=== PATIENT | male | born 1945 | race Caucasian/White ===

== ENCOUNTER 2024-05-08 10:30 | Inpatient (IN) | payer BC, MEDICAID ==
[2024-05-08] VITALS (27 sets, daily range): BP systolic 77–137; BP diastolic 36–94; PULSE 67–125; RESP 15–38; TEMP 96.6–98.5; O2SAT 92–100
[~2024-05-08] VITALS: Ht 182.9 cm; Wt 80.0 kg
--- NOTE | 2024-05-08 10:40 | ED.PDOC ---
History of Present Illness HPI Comments HPI: Poor Historian. 78-year-old male brought in by ambulance from home for generalized weakness. Patient typically ambulates with a walker however in the last few days he has not been able to get out of bed. This severe weakness was to the point that it was unable to make it to the bathroom and had soiled himself. Denies any acute pain anywhere in his body. Pre-hospital vital signs were stable with some tachycardia of 110. Blood sugar was normal. Per EMS he was slightly hypoxic in the high 80s at room air so they placed him on 2 L nasal cannula. However later in the course as the nurse was cleaning the patient we noted bright red blood per rectum. GI workup was initiated. Vitals: Temp:99.1 F Heart rate: 110 RR: 14 BP:103/67 02 sat: 100% on room air PMH: CHF, HLD,COPD, HTN, CHRONIC KIDNEY DISEASE, DNR PSH: UYNKNOWN Social history: denies tobacco use, denies ETOH use, denies drug use Meds: UNKNOWN Allergies: PENICILLIN, MINT REVIEW OF SYSTEMS: CONSTITUTIONAL: Denies acute: fever, diaphoresis, chills, HEAD: Denies acute: headache, photophobia Eyes: Denies acute: Double vision, vision loss, eye pain, eye discharge. EARS: Denies acute: tinnitus, hearing loss, ear discharge, ear pain, THROAT: Denies acute: sore throat, swelling, difficulty swallowing , pain with swallowing, change in voice. NECK: Denies acute: neck pain, neck swelling, stiff neck. HEART: Denies acute : chest pain, palpitations, LUNGS: Denies acute: SOB, wheezing, cough, hemoptysis ABDOMEN: Denies acute: abdominal pain, Nausea, Vomiting, diarrhea, melena , hematemesis, hematochezia SKIN: Denies acute: rash, redness, lesions, itchiness. EXTREMITIES: Denies acute: calf pain, numbness, tingling, weakness, denies pain in extremity. Denies acute: Low back pain. Neuro: Denies acute: focal neurological deficit, motor or sensory focal neurological deficit, tremors, seizure like activity, confusion, dizziness, change in mental status, loss of bowel or bladder function, cauda equina like symptoms. : Denies acute: dysuria, hematuria, flank pain, increase in urinary frequency. PSYCH: Denies acute: hallucination, suicidal ideation, homicidal ideation. PHYSICAL EXAM: General: no acute distress, awake and alert. Appears weak Head: normocephalic, atraumatic. Neck: supple, trachea is midline, no swelling. Throat: Normal phonation. Eyes:, no erythema, no purulent discharge, no proptosis, no icterus. Heart: regular tachycardia, no significant murmur appreciated. Lungs: no apparent respiratory distress, No wheezing, no rhonchi, no crackles. No stridors Clear to auscultation bilaterally. Abdomen: non tender to palpation, non distended, soft, no guarding, no rebound, + bowel sounds. Neuro: Awake, Alert, oriented to name, self, situation, follows commands Speech is normal. Skin: no petechia, no purpura, no cyanosis, non-pale, not jaundice. Lower extremities: --no - Pitting edema no deformity, no focal swelling, no calf TTP. Able to flex bilateral knees and hips. Makes eye contact. moves all four extremities. Face: no apparent facial droop. Chief Complaint: GENERALIZED WEAKNESS Time Seen by MD: 10:37 Reviewed Notes: Nurses Notes, Freezer Assistant Notes, Medications, Allergies Allergies: Uncoded Allergies: PENICILLIN (Allergy, Unknown, 05/08/24) Information Source: Patient, Emergency Med Personnel Mode of Arrival: EMS Past Medical History PAST MEDICAL HISTORY: CHF, CKF, COPD, High Lipids, HTN Surgical History: Unknown Family History Family History: Unknown Social History Smoker: Non-Smoker Alcohol: Denies ETOH Use Drugs: Denies Drug Use Lives In: Home Was a procedure done? Was a procedure done?: No Differential Dx Considerations may include: As far generalized weakness: Includes but not limited to thyroid disease, encephalopathy, electrolyte abnormality, sepsis, infection, intracranial pathology, drug adverse effects, arrhythmia, kidney insufficiency, ACS, CVA, malignancy, anemia As far as GI bleed: Diverticulitis, colitis, fistula, neoplasm, hemorrhoids, anal fissures, constipation, Crohn's disease, ulcerative colitis X-Ray, Labs, Meds, VS Vital Signs Date Time Temp Pulse Resp B/P (MAP) Pulse Ox O2 Delivery O2 Flow Rate FiO2 05/08/24 17:25 97.3 108 19 95/36 97.3 05/08/24 17:00 97.3 67 15 137/57 97.3 05/08/24 17:00 97.3 115 24 99/57 (71) 96 97.3 05/08/24 16:50 97.3 121 24 112/43 97.3 05/08/24 16:00 97.3 121 14 83/48 (60) 96 97.3 05/08/24 16:00 121 05/08/24 15:00 118 14 91/43 (59) 96 05/08/24 14:45 96.6 111 17 89/56 96.6 05/08/24 14:30 96.6 110 15 77/46 96.6 05/08/24 14:15 96.6 107 24 82/48 96.6 05/08/24 14:00 110 24 68/43 (51) 100 05/08/24 13:00 107 23 74/44 (54) 100 05/08/24 12:00 96.6 105 32 104/60 (75) 100 96.6 05/08/24 12:00 105 05/08/24 12:00 105 32 100 Nasal Cannula* 2 28 05/08/24 11:01 105 05/08/24 10:57 100 Nasal Cannula* 4 36 05/08/24 10:43 99.1 110 14 103/67 (79) 100 Lab Test 05/08/24 17:26 05/08/24 12:54 05/08/24 10:59 Range/Units Prothrombin Time 12.9 H 9.3-11.8 sec Prothrombin Time INR 1.24 H 0.9-1.15 Activated Partial Thromboplast Time 21.7 L 24.5-34.5 SEC Sodium Level 144 136-145 mmol/L Potassium Level 7.0 *H 3.5-5.1 mmol/L Chloride Level 118 H 98-107 mmol/L Carbon Dioxide Level 15 L 20-31 mmol/L Anion Gap 11 5-15 Blood Urea Nitrogen 62 H 9-23 mg/dL Creatinine 2.34 H 0.700-1.30 mg/dL Glomerular Filtration Rate Calc 28 >90 mL/min BUN/Creatinine Ratio 26.5 H 10.0-20.0 Serum Glucose 134 H 74-106 mg/dL Calcium Level 8.2 L 8.7-10.4 mg/dL Troponin I High Sensitivity 45 30 27 </=54 ng/L B-Type Natriuretic Peptide 163.45 132.85 0-100 pg/mL Hemoglobin 5.7 #*L 7.5 L 13.5-17.5 g/dL Hematocrit 18.2 #L 23.7 L 41.0-53.0 % Lactic Acid Level 3.4 *H 2.4 *H 0.4-2.0 mmol/L White Blood Count 13.5 H 4.4-10.8 10^3/uL Red Blood Count 2.33 L 4.5-5.90 10^6/uL Mean Corpuscular Volume 101.5 H 80.0-100.0 fL Mean Corpuscular Hemoglobin 32.1 H 28.0-32.0 pg Mean Corpuscular Hemoglobin Concent 31.6 L 32.0-36.0 g/dL Red Cell Distribution Width 15.6 H 11.8-14.3 % Platelet Count 158 140-450 10^3/uL Mean Platelet Volume 9.0 6.9-10.8 fL Neutrophils (%) (Auto) 89.6 H 37.0-80.0 % Lymphocytes (%) (Auto) 4.4 L 10.0-50.0 % Monocytes (%) (Auto) 5.2 0.0-12.0 % Eosinophils (%) (Auto) 0.2 0.0-7.0 % Basophils (%) (Auto) 0.6 0.0-2.0 % Neutrophils # (Auto) 12.1 H 1.6-8.6 10 ^3/uL Lymphocytes # (Auto) 0.6 0.4-5.4 10 ^3/uL Monocytes # (Auto) 0.7 0-1.3 10 ^3/uL Eosinophils # (Auto) 0 0-0.8 10 ^3/uL Basophils # (Auto) 0.1 0-0.2 10 ^3/uL Nucleated Red Blood Cells 0.0 % Magnesium Level 2.3 1.6-2.6 mg/dL Current Medications Medications (Trade) Dose Ordered Sig/Maurisio Route Start Time Stop Time Status Last Admin Sodium Chloride 1,000 ml @ 1,000 mls/hr Q1H ONCE IV 05/08/24 11:45 05/08/24 12:44 DC 05/08/24 11:45 Octreotide Acetate 100 mcg/ Sodium Chloride 51 ml @ 204 mls/hr ONCE ONCE IV 05/08/24 11:45 05/08/24 11:59 DC 05/08/24 13:08 Octreotide Acetate 500 mcg/ Sodium Chloride 100 ml @ 10 mls/hr Q10H IV 05/08/24 11:45 05/08/24 16:50 Pantoprazole Sodium (Protonix) 40 mg ONCE ONCE IV 05/08/24 11:45 05/08/24 11:48 DC 05/08/24 12:12 Pantoprazole Sodium 50 ml @ 10 mls/hr Q5H ONCE IV 05/08/24 11:45 05/08/24 16:44 DC 05/08/24 12:15 Sodium Chloride (Saline Lock Ns) 10 ml Q8HR IV 05/08/24 14:00 05/08/24 14:37 Metronidazole 100 ml @ 100 mls/hr ONCE ONCE IV 05/08/24 14:15 05/08/24 15:14 DC 05/08/24 16:17 [place] [address] Ph: [phone] DIAGNOSTIC IMAGING Diagnostic Imaging Report : [id number] Signed PATIENT: LEE FERGUSON ACCT: [id number] UNIT: [id number] : 1945 LOC: ER ROOM / BED: / AGE / SEX: 78 / M ADM STATUS: REG ER SERVICE 1040 ORDERING PHYSICIAN: TOBI SCHMITZ DO PROCEDURE(s): CXRP - CHEST PORTABLE REASON: gen weak ORDER NUMBER(s): [id number], ACCESSION NUMBER(s): [id number] CHEST RADIOGRAPH Indication:gen weak Technique: Single frontal view of the chest was obtained COMPARISON: None FINDINGS: Lines and Tubes: None Lungs: Clear Pleura: No effusion. No pneumothorax. Cardiomediastinal contours: Unremarkable Bones: Unremarkable IMPRESSION: No acute disease. ATED BY: JUANCHO COUGHLIN MD DICTATED DATE/TIME: 05/08/241124 SIGNED BY: JUANCHO COUGHLIN MD SIGNED DATE/TIME: 05/08/241124 CC: [place] [address] Ph: [phone] DIAGNOSTIC IMAGING Diagnostic Imaging Report : [id number] Signed PATIENT: LEE FERGUSON ACCT: [id number] UNIT: [id number] : 1945 LOC: ER ROOM / BED: / AGE / SEX: 78 / M ADM STATUS: REG ER SERVICE 1040 ORDERING PHYSICIAN: TOBI SCHMITZ DO PROCEDURE(s): ABPL - CT AB PEL WO CON-NO ORAL OR IV REASON: gen weak ORDER NUMBER(s): [id number], ACCESSION NUMBER(s): [id number] Exam: CT CT AB PEL WO CON-NO ORAL OR IV History: gen her Comparison Study: None Technique: Multidetector spiral CT of the abdomen and pelvis was performed from lung bases to pubic symphysis. Imaging was performed without IV contrast. Axial, coronal and sagittal multiplanar reformats were obtained from the axial data set by the technologist. Radiation dose : Abdomen/Pelvis: CTDIvol 5 mGy, DLP 274.92 mGy*cm. Findings: Evaluation of solid organs is limited due to lack of intravenous contrast use. Lung Bases: No acute or significant lung base finding. Normal heart size. No pleural or pericardial effusion. Liver: The liver is normal in size. No focal lesions. Gallbladder and biliary Tree: Unremarkable Spleen: Unremarkable Pancreas: The pancreas is grossly normal in appearance. Adrenal Glands: Unremarkable Kidneys: Bilateral renal cysts. No hydronephrosis or nephrolithiasis. Bladder: Grossly unremarkable for degree of distention. Bowel: The stomach is grossly normal in appearance. Small bowel and colon are normal in caliber and distribution. The appendix is not visualized; however, no secondary findings of acute appendicitis identified. Ascites: Absent Lymphadenopathy: No mesenteric, retroperitoneal or periportal lymphadenopathy. Abdominal wall and Mesentery: Unremarkable. Vasculature: Descending thoracic aortic aneurysm measuring up to 45 mm. Infrarenal abdominal aortic aneurysm measuring up to 67 mm. Pelvic Organs: Unremarkable Musculoskeletal: Multiple compression fractures including T12, L1, L4, and L5. IMPRESSION: 1. 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 Recommend further evaluation with CTA of the chest abdomen and pelvis. 2. Bilateral renal cysts. No definite acute intra-abdominal process identified. Multiple compressions fractures in the spine. Consider further evaluation with MRI of the lumbar spine. Radiation optimization: All CT scans at this facility use at least one of these dose optimization techniques: Automated exposure control mA and/or kV adjustment per patient size (includes targeted exams where dose is matched to clinical indication) or iterative reconstruction. HS:Y ATED BY: LALO KIM MD DICTATED DATE/TIME: 05/08/241133 SIGNED BY: LALO KIM MD SIGNED DATE/TIME: 05/08/241133 CC: Time of 1ST Reevaluation: 20:54 Reevaluation 1ST: Improved Patient Education/Counseling: Diagnosis, Treatment Family Education/Counseling: No Family Present Comments Patient presented with the above HPI.---generalized weakness---workup was initiated. patient was found with the above mentioned diagnosis. Patient was given: Fluid boluses, octreotide bolus and a drip, Protonix bolus and a drip, patient was typed and screened and transfused 2 units of packed red blood cells. I also started empiric antibiotics. Patient ED course and VS have been stabilized. Patient has been reassessed in the ED and remained in a stable condition. Pertinent incidental findings were discussed with the patient and/or family. Patient/family voices understanding and is agreeable with plan. Patient has been observed in the ED adequate length of time to insure i mprovement/stability. patient was admitted to the medicine team for further evaluation and treatment of their presentation. All the reports of any imaging studies that were ordered by myself were reviewed by myself. GI team came and evaluated the patient at bedside here in the ED. Later in the course patient was found with hyperkalemia. I was never made aware of this. The hospitalist admitting team started hyperkalemia protocol on the patient. Departure 1 Departure Time of Disposition: 11:57 Impression: Primary Impression: GI bleed Additional Impressions: Hemorrhagic shock Hyperkalemia Abdominal aneurysm Thoracic aortic aneurysm UTI (urinary tract infection) Disposition: ADMITTED INPATIENT Admit to: ICU Condition: Critical Discharged With: Self Heart Score Heart Score: Heart Score Response (Comments) Value History Moderate Suspicious 1 EKG Normal 0 Age >65 2 Risk Factors 1 or 2 risk factors 1 Troponin Normal limit 0 Total 4 Critical Care Note Critical Care Time?: Yes (1 hr-critical care time only) I personally scribed for TOBI SCHMITZ DO ([email or web address]) on 05/08/24 at 10:40. Electronically submitted by Roscoe London (PAMELA). I personally scribed for TOBI SCHMITZ DO ([email or web address]) on 05/08/24 at 10:58. Electronically submitted by Roscoe London (PAMELA). I personally scribed for TOBI SCHMITZ DO ([email or web address]) on 05/08/24 at 11:00. Electronically submitted by Roscoe London (PAMELA). I personally scribed for TOBI SCHMITZ DO ([email or web address]) on 05/08/24 at 14:09. Electronically submitted by Roscoe London ([facility]). TOBI SCHMITZ DO May 08, 2024 10:40
[2024-05-08 11:18] LABS: Basophils # (auto) 0.1 10 ^3/uL (0-0.2); Basophils % (auto) 0.6 % (0.0-2.0); Eosinophils # (auto) 0 10 ^3/uL (0-0.8); Eosinophils % (auto) 0.2 % (0.0-7.0); Hematocrit 23.7 % (41.0-53.0); Hemoglobin 7.5 g/dL (13.5-17.5); Lymphocytes # (auto) 0.6 10 ^3/uL (0.4-5.4); Lymphocytes % (auto) 4.4 % (10.0-50.0); Mean Corpuscular Hemoglobin 32.1 pg (28.0-32.0); Mean Corpuscular Hgb Conc. 31.6 g/dL (32.0-36.0); Mean Corpuscular Volume 101.5 fL (80.0-100.0); Monocytes # (auto) 0.7 10 ^3/uL (0-1.3); Monocytes % (auto) 5.2 % (0.0-12.0); Neutrophils # (auto) 12.1 10 ^3/uL (1.6-8.6); Neutrophils % (auto) 89.6 % (37.0-80.0); Platelet Count (auto) 158 10^3/uL (140-450); Red Blood Cells 2.33 10^6/uL (4.5-5.90); Red Cell Distribution Width 15.6 % (11.8-14.3); White Blood Cell 13.5 10^3/uL (4.4-10.8)
--- NOTE | 2024-05-08 11:27 | DVH ---
CHEST RADIOGRAPH Indication:gen weak Technique: Single frontal view of the chest was obtained COMPARISON: None FINDINGS: Lines and Tubes: None Lungs: Clear Pleura: No effusion. No pneumothorax. Cardiomediastinal contours: Unremarkable Bones: Unremarkable IMPRESSION: No acute disease.
--- NOTE | 2024-05-08 11:37 | DVH ---
Exam: CT CT AB PEL WO CON-NO ORAL OR IV History: gen weak Comparison Study: None Technique: Multidetector spiral CT of the abdomen and pelvis was performed from lung bases to pubic symphysis. Imaging was performed without IV contrast. Axial, coronal and sagittal multiplanar reform ats were obtained from the axial data set by the technologist. Radiation dose : Abdomen/Pelvis: CTDIvol 5 mGy, DLP 274.92 mGy*cm. Findings: Evaluation of solid organs is limited due to lack of intravenous contrast use. Lung Bases: No acute or significant lung base finding. Normal heart size. No pleural or pericardial effusion. Liver: The liver is normal in size. No focal lesions. Gallbladder and biliary Tree: Unremarkable Spleen: Unremarkable Pancreas: The pancreas is grossly normal in appearance. Adrenal Glands: Unremarkable Kidneys: Bilateral renal cysts. No hydronephrosis or nephrolithiasis. Bladder: Grossly unremarkable for degree of distention. Bowel: The stomach is grossly normal in appearance. Small bowel and colon are normal in caliber and d istribution. The appendix is not visualized; however, no secondary findings of acute appendicitis id entified. Ascites: Absent Lymphadenopathy: No mesenteric, retroperitoneal or periportal lymphadenopathy. Abdominal wall and Mesentery: Unremarkable. Vasculature: Descending thoracic aortic aneurysm measuring up to 45 mm. Infrarenal abdominal aortic a neurysm measuring up to 67 mm. Pelvic Organs: Unremarkable Musculoskeletal: Multiple compression fractures including T12, L1, L4, and L5. IMPRESSION: 1. 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 Recommend fu rther evaluation with CTA of the chest abdomen and pelvis. 2. Bilateral renal cysts. No definite acute intra-abdominal process identified. Multiple compressions fractures in the spine. Consider further evaluation with MRI of the lumbar spine. Radiation optimization: All CT scans at this facility use at least one of these dose optimization tequila hniques: Automated exposure control mA and/or kV adjustment per patient size (includes targeted exams where dose is matched to clinical indication) or iterative reconstruction. HS:Y
[2024-05-08] MEDS: SODIUM CHLORIDE 0.9% 1,000 ML IV ONE (11:45)
[2024-05-08 11:53] LABS: Lactic Acid w/Reflex 2.4 mmol/L (0.4-2.0)
[2024-05-08] MEDS: PANTOPRAZOLE 40 MG/10 ML VIAL INJ IV ONE (12:12)
[2024-05-08] MEDS: PANTOPRAZOLE 40mg/50ML NS AE 50 ML IV ONE (12:15)
--- NOTE | 2024-05-08 13:00 | ECG ---
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
[2024-05-08] MEDS: OCTREOTIDE ACETATE 100 MCG in SODIUM CHL 0.9% 50 ML IV ONE (13:08)
[2024-05-08 13:25] LABS: Hematocrit 18.2 % (41.0-53.0)
[2024-05-08 13:41] LABS: Hemoglobin 5.7 g/dL (13.5-17.5)
[2024-05-08] MEDS ORDERED: ACETAMINOPHEN 325 MG TAB PO PRN (14:00)
[2024-05-08] MEDS ORDERED: DOCUSATE SOD 100 MG CAP PO PRN (14:00)
[2024-05-08] MEDS ORDERED: HYDROcodone-ACET 5/325MG TAB PO PRN (14:00)
[2024-05-08] MEDS ORDERED: ONDANSETRON HCL 4 MG/2 ML VIAL IV PRN ×2 (14:00→17:45)
[2024-05-08] MEDS: SODIUM CHLOR 0.9% PF (SALINE LOCK) 10ML VIAL/SYR IV SCH (14:37)
[2024-05-08] MEDS: metroNIDAZOLE 500MG/100ML 100 ML IV ONE (16:17)
[2024-05-08] MEDS: OCTREOTIDE ACETATE 500 MCG in SODIUM CHL 0.9% 99 ML IV SCH (16:50)
[2024-05-08] MEDS ORDERED: MORPHINE SULFATE INJ 2 MG/ml SYRG IV PRN (17:45)
[2024-05-08] MEDS ORDERED: PANTOPRAZOLE 40mg/50ML NS AE 50 ML IV ONE (17:45)
[2024-05-08] MEDS ORDERED: NITROGLYCERIN 0.4 MG SL TAB SL PRN (17:45)
[2024-05-08 18:18] LABS: Chloride 118 mmol/L (98-107); Sodium 144 mmol/L (136-145)
[2024-05-08 18:19] LABS: Anion Gap 11 (5-15); Carbon Dioxide 15 mmol/L (20-31)
[2024-05-08 18:20] LABS: Calcium 8.2 mg/dL (8.7-10.4)
[2024-05-08 18:24] LABS: BUN/Creatinine Ratio 26.5 (10.0-20.0); Blood Urea Nitrogen 62 mg/dL (9-23); Glucose 134 mg/dL (74-106)
[2024-05-08 18:31] LABS: INR 1.24 (0.9-1.15); Partial Thromboplastin Time 21.7 SEC (24.5-34.5); Prothrombin Time 12.9 sec (9.3-11.8)
[2024-05-08] MEDS: SODIUM CHLORIDE 0.9% 1,000 ML IV SCH (18:32)
[2024-05-08] MEDS: PANTOPRAZOLE 40mg/50ML NS AE 50 ML IV SCH (18:33)
--- NOTE | 2024-05-08 18:40 | DVHHP2 ---
History of Present Illness Reason for Visit: Generalized weakness History of Present Illness To be noted patient was very poor historian most surgical history obtained from the ER physician and documentation from the ER chart. 78-year-old male with a known medical history initially presented to the hospital by paramedics with generalized weakness and difficulty getting out of bed. In the ER patient was found to have bright red blood per rectum has been as dark stools in the ER we are patient currently getting 2nd unit of packed RBC. Patient was being admitted to ICU as he is critical. Protonix drip will be started. GI: GI bleed Heme/Onc: Anemia NOS Smoke: No ALCOHOL: none Review of Systems Review of Systems Twelve review of system can not be obtained as patient was currently poor historian. Allergies: Uncoded Allergies: PENICILLIN (Allergy, Unknown, 05/08/24) Medications Current Medications Medications Dose Ordered Sig/Maurisio Route Start Time Stop Time Status Last Admin Dose Admin Octreotide Acetate 500 mcg/ Sodium Chloride 100 ml @ 10 mls/hr Q10H IV 05/08/24 11:45 05/08/24 16:50 10 MLS/HR Sodium Chloride 10 ml Q8HR IV 05/08/24 14:00 05/08/24 14:37 10 ML Acetaminophen/ Hydrocodone Bitart 1 tab Q4HP PRN PO 05/08/24 14:00 Docusate Sodium 100 mg BIDPRN PRN PO 05/08/24 14:00 Acetaminophen 650 mg Q6HP PRN PO 05/08/24 14:00 Sodium Chloride 1,000 ml @ 120 mls/hr Q8H20M IV 05/08/24 17:45 05/08/24 18:32 120 MLS/HR Ondansetron HCl 4 mg Q4HP PRN IV 05/08/24 17:45 Nitroglycerin 0.4 mg Q5MINP PRN SL 05/08/24 17:45 Morphine Sulfate 2 mg Q30M PRN IV 05/08/24 17:45 Pantoprazole Sodium 50 ml @ 10 mls/hr Q5H IV 05/08/24 18:00 05/08/24 18:33 10 MLS/HR Exam Vital Signs Vital Signs Date Time Temp Pulse Resp B/P (MAP) Pulse Ox O2 Delivery O2 Flow Rate FiO2 05/08/24 18:00 98.1 110 22 86/59 (68) 99 98.1 05/08/24 12:00 Nasal Cannula* 2 28 Exam HEENT pupils are reactive positive pallor conjunctiva Neck is supple CV is S1-S2 regular with a positive tachycardic between 100-100 and has been bilateral clear GI posterior bowel sounds soft nondistended no guarding no rigidity Extremity no edema 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 Labs/Xrays Labs Test 05/08/24 18:31 05/08/24 17:26 05/08/24 12:54 05/08/24 10:59 Range/Units Prothrombin Time 12.9 H 9.3-11.8 sec Prothrombin Time INR 1.24 H 0.9-1.15 Activated Partial Thromboplast Time 21.7 L 24.5-34.5 SEC Troponin I High Sensitivity 45 </=54 ng/L B-Type Natriuretic Peptide 163.45 0-100 pg/mL Hemoglobin 5.7 #*L 13.5-17.5 g/dL Hematocrit 18.2 #L 41.0-53.0 % Lactic Acid Level 3.4 *H 0.4-2.0 mmol/L White Blood Count 13.5 H 4.4-10.8 10^3/uL Red Blood Count 2.33 L 4.5-5.90 10^6/uL Mean Corpuscular Volume 101.5 H 80.0-100.0 fL Mean Corpuscular Hemoglobin 32.1 H 28.0-32.0 pg Mean Corpuscular Hemoglobin Concent 31.6 L 32.0-36.0 g/dL Red Cell Distribution Width 15.6 H 11.8-14.3 % Platelet Count 158 140-450 10^3/uL Mean Platelet Volume 9.0 6.9-10.8 fL Neutrophils (%) (Auto) 89.6 H 37.0-80.0 % Lymphocytes (%) (Auto) 4.4 L 10.0-50.0 % Monocytes (%) (Auto) 5.2 0.0-12.0 % Eosinophils (%) (Auto) 0.2 0.0-7.0 % Basophils (%) (Auto) 0.6 0.0-2.0 % Neutrophils # (Auto) 12.1 H 1.6-8.6 10 ^3/uL Lymphocytes # (Auto) 0.6 0.4-5.4 10 ^3/uL Monocytes # (Auto) 0.7 0-1.3 10 ^3/uL Eosinophils # (Auto) 0 0-0.8 10 ^3/uL Basophils # (Auto) 0.1 0-0.2 10 ^3/uL Nucleated Red Blood Cells 0.0 % Magnesium Level 2.3 1.6-2.6 mg/dL Assessment/Plan Assessment/Plan 78-year-old male who initially went to the heart with generalized weakness found to have 1. Acute symptomatic anemia with lower GI bleed 2. GI bleed 3. Lactic acidosis -stat CMP as patient does not have any labs, repeat lactic acid, transfused 2 units of packed RBC, hemoglobin hematocrit q.6 hours transfuse if less than eight. GI has been notified, check PT PTT INR. -no family available at this point of time. Plan discussed with: Patient My Orders Orders - OBED ECHOLS MD Procedure Category Date Status Time Sodium Chloride 0.9% PHA 05/08/24 In Process 17:45 Ondansetron Hcl PHA 05/08/24 In Process (Zofran) 17:45 Nitroglycerin PHA 05/08/24 In Process Sublingual (Ntrostat 17:45 Morphine Sulfate PHA 05/08/24 In Process Injection 17:45 Stat Ekg For Chest [facility] 05/08/24 In Process Pain 17:39 Notify Md Of Changes [facility] 05/08/24 In Process From Base 17:39 Revenue Integrity Analyst For [facility] 05/08/24 In Process 24 Hours 17:39 Emergency Dysrhythmia [facility] 05/08/24 In Process Protocol 17:39 Rhythm Strips Once [facility] 05/08/24 In Process Every Shift 17:39 Oxygen By Nasal RT 05/08/24 Transmitted Cannula 17:39 *[facility] CONS 05/08/24 Transmitted 17:39 Pantoprazole PHA 05/08/24 In Process 40mg/50ml Ns Ae 18:00 Admit ADMIT 05/08/24 Transmitted 18:14 Problem List: (1) GI bleed Date of Service: May 08, 2024 Billing Provider: OBED ECHOLS MD Common Visit Codes: NOT BILLABLE OBED ECHOLS MD May 08, 2024 18:40
[2024-05-08] MEDS: FUROSEMIDE 20 MG/2 ML VIAL IV ONE (19:26)
[2024-05-08] MEDS: DEXTROSE (50%) 50ML SYRG IV ONE ×2 (19:36→22:08)
[2024-05-08] MEDS: CALCIUM GLUC 1,000mg/50ml-NS 50 ML IV ONE (19:36)
[2024-05-08] MEDS: InsuLIN REG 1unit/0.01ml Soln (100units/ml) IV ONE ×2 (19:37→22:10)
[2024-05-08 19:42] LABS: Urine Amorphous Crystal FEW /hpf (None Seen); Urine Bacteria FEW /hpf (None Seen); Urine Blood Negative /uL (Negative); Urine Clarity Turbid (Clear); Urine Color Yellow (Yellow); Urine Hyaline Cast FEW /lpf (0 - 2); Urine Mucus FEW (None Seen); Urine Protein, UAD 2+ (Negative); Urine Specific Gravity 1.023 (1.001-1.035); Urine Urobilinogen 3 mg/dL (Negative); Urine WBC 4 /hpf (0 - 3)
[2024-05-08] MEDS: NOREPINEPHRINE 8 MG/250ML KIT 250 ML IV SCH (20:00)
[2024-05-08] MEDS ORDERED: SODIUM BICARB 50mEq/50ml Vial 150 ML in D5W 5% 1,000 ML IV SCH (20:00)
[2024-05-08] MEDS: SODIUM ZIRCONIUM CYCL 10 GM PAK PO SCH (20:45)
[2024-05-08] MEDS ORDERED: FUROSEMIDE 20 MG/2 ML VIAL IV ONE (21:15)
[2024-05-08] MEDS: FUROSEMIDE 100 MG/10ML VIAL IV ONE (21:18)
[2024-05-08] MEDS: ALBUMIN 25% 100 ML IV ONE (21:26)
[2024-05-08 21:36] LABS: Chloride 119 mmol/L (98-107); Sodium 146 mmol/L (136-145)
[2024-05-08 21:37] LABS: Anion Gap 10 (5-15); Calcium 8.5 mg/dL (8.7-10.4); Carbon Dioxide 17 mmol/L (20-31)
[2024-05-08] MEDS: SODIUM BICARB 8.4% 50Meq/50ml SYR Vial IV ONE ×2 (21:41→22:28)
[2024-05-08 21:42] LABS: BUN/Creatinine Ratio 22.8 (10.0-20.0); Blood Urea Nitrogen 54 mg/dL (9-23); Glucose 162 mg/dL (74-106)
[2024-05-08 21:43] LABS: Potassium 6.2 mmol/L (3.5-5.1)
[2024-05-08 21:53] LABS: Lactic Acid w/Reflex 4.1 mmol/L (0.4-2.0)
[2024-05-09] VITALS (20 sets, daily range): BP systolic 55–98; BP diastolic 32–52; PULSE 86–116; RESP 17–30; TEMP 96.1–98.6; O2SAT 92–100
[2024-05-09] MEDS: ALBUMIN 25% 100 ML IV ONE ×2 (00:24→00:58)
[2024-05-09 00:41] LABS: Hematocrit 23.6 % (41.0-53.0); Hemoglobin 7.3 g/dL (13.5-17.5)
--- NOTE | 2024-05-09 02:45 | DVHINCON2 ---
DATE OF CONSULTATION: 05/08/2024 GASTROENTEROLOGY CONSULTATION REFERRING PHYSICIAN: James Garza MD REASON FOR CONSULTATION: GI bleed. HISTORY OF PRESENT ILLNESS: The patient is a 78-year-old male with a past medical history significant for hypertension and hernia, who is brought to [facility] for evaluation of ambulatory dysfunction. The patient states that he was in his normal state of health up until 1:00 this morning when he had some difficulty with movement. The patient's nephew apparently contacted paramedics and he was brought to the hospital due to his generalized weakness and ambulatory dysfunction. Following his ER evaluation, the patient was noted to have an initial admission hemoglobin of 7.5, hematocrit 23.7, MCV 101.5, and a platelet count of 158,000. However, this patient has had several episodes of bright red blood per rectum in the ER. His INR is 1.24 with a protime of 12.9. 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 The patient also noted to have bilateral renal cysts, but no definite acute intra-abdominal process identified. The patient denies any GI related blood loss prior to his hospital admission. He denies using any anticoagulation or blood thinning therapy aside from aspirin 81 mg. The patient's vitals have been somewhat hypotensive with an admission blood pressure of 103/67; over the course of this admission, he has decreased systolic blood pressures dropped to 83/48. The patient denies any prior incidence of GI related blood loss. He denies having had a prior endoscopy, but states he had a colonoscopy over 50 years ago. No personal or family history of colorectal malignancies. Gastroenterology service has been asked for input regarding his symptoms. DRUG ALLERGIES: PENICILLIN. HOME MEDICATIONS: At the time of admission, he is on 81 mg of aspirin and ____. PAST MEDICAL HISTORY: Hypertension and hernia. PAST SURGICAL HISTORY: Cataracts. SOCIAL HISTORY: The patient denies drugs or alcohol. He does admit to smoking heavily in the past. FAMILY HISTORY: Noncontributory. REVIEW OF SYSTEMS: A 12-point review of systems limited, but as stated in HPI. PHYSICAL EXAMINATION: VITAL SIGNS: Temperature is 98.1, heart rate 110, respirations 22, blood pressure 86/59, O2 saturation 99%. GENERAL: This is a 78-year-old male. He is in no acute distress. He is awake, alert, oriented x3. He is very hard of hearing. HEENT: Unremarkable. He is very disheveled. He has very poor dentition. Mucous membranes are dry. NECK: Supple. CARDIOVASCULAR: Regular rhythm. He is tachycardic. RESPIRATORY: He is tachypneic. There is no murmurs, rubs or gallops. No wheezes, rales or rhonchi. GASTROINTESTINAL: Soft, nontender, nondistended. RECTAL: Deferred. LABORATORY DATA: White blood cell count 13.5, hemoglobin 5.7, hematocrit 18.2, platelet count is 158,000. Basic metabolic panel was relevant for serum sodium 144, potassium 7.0, chloride is 118, BUN is 62, creatinine is 2.34. Lactic acid 3.4. INR is 1.24. Protime is 12.9. ASSESSMENT: * GI bleed. Differential diagnosis given hemodynamic instability is upper GI blood loss from peptic ulcer disease, esophagitis, gastritis, Dieulafoy lesion or an aortoenteric fistula given his dilation of the thoracic aneurysm and infrarenal aneurysm. * Acute GI blood loss related anemia. * Hypertension. * Lactic acidosis. * Hyperkalemia. * Acute renal failure. RECOMMENDATIONS: * Aggressive volume resuscitation with packed red blood cells normal saline. * Obtain CT angiogram. * Correct electrolytes. * Nephrology evaluation. * Plan for diagnostic endoscopy once aortoenteric fistula has been excluded and the patient's electrolytes have been corrected. * Agree with ICU admission, the patient should be kept on Sandostatin and PPI drip. * Further recommendations based on hospital course. DO ARRON Ross/GISEL/MATTY TID: [id number] RECEIPT: [id number]
[2024-05-09] MEDS ORDERED: ALBUMIN 25% 50 ML IV SCH (07:15)
--- NOTE | 2024-05-09 07:18 | DVHINCON2 ---
Date of service: May 09, 2024 Reason for Consultation ASHLEY History of Present Illness 78 year old was admitted for weakness. He was unable to provide hx however he was noted to have severe anemia and hypotension. He was noted to have severe hyperkalemia. Medical managment ordered. He is s/p multiple PRBC. He was s/p IVF . I recommended pressors for hemodynamic support overnight Allergies: Uncoded Allergies: PENICILLIN (Allergy, Unknown, 05/08/24) Current Medications Current Medications Medications (Trade) Dose Ordered Sig/Maurisio Route PRN Reason Start Time Stop Time Status Last Admin Octreotide Acetate 500 mcg/ Sodium Chloride 100 ml @ 10 mls/hr Q10H IV 05/08/24 11:45 05/09/24 01:44 Pantoprazole Sodium (Protonix) 40 mg DAILY IV 05/09/24 10:00 05/08/24 17:58 DC Sodium Chloride (Saline Lock Ns) 10 ml Q8HR IV 05/08/24 14:00 05/09/24 05:34 Acetaminophen/ Hydrocodone Bitart (Hayes 5/325MG Tab) 1 tab Q4HP PRN PO MODERATE PAIN (4-6 PAIN SCALE) 05/08/24 14:00 Ondansetron HCl (Zofran) 4 mg Q4HP PRN IV NAUSEA / VOMITING 05/08/24 14:00 05/08/24 17:58 DC Docusate Sodium (Colace Capsule) 100 mg BIDPRN PRN PO FOR CONSTIPATION 05/08/24 14:00 Acetaminophen (Tylenol Tablet) 650 mg Q6HP PRN PO PAIN SCALE 1-3 OR TEMP>100.4 05/08/24 14:00 Sodium Chloride 1,000 ml @ 120 mls/hr Q8H20M IV 05/08/24 17:45 05/08/24 18:32 Ondansetron HCl (Zofran) 4 mg Q4HP PRN IV NAUSEA / VOMITING 05/08/24 17:45 Nitroglycerin (Ntrostat Sublingual) 0.4 mg Q5MINP PRN SL FOR CHEST PAIN 05/08/24 17:45 Morphine Sulfate 2 mg Q30M PRN IV FOR CHEST PAIN 05/08/24 17:45 Pantoprazole Sodium 50 ml @ 10 mls/hr Q5H IV 05/08/24 18:00 05/09/24 04:09 Sodium Bicarbonate 150 ml/Dextrose 1,150 ml @ 100 mls/hr [id number] IV 05/08/24 20:00 05/08/24 21:07 DC Zirconium Oxide (Lokelma) 10 gm TID PO 05/08/24 20:00 05/11/24 19:59 05/08/24 20:45 Norepinephrine Bitartrate 250 ml @ 3.75 mls/hr Q24H IV 05/08/24 20:00 05/08/24 22:46 DC Norepinephrine Bitartrate 250 ml @ 3.75 mls/hr Q24H IV 05/09/24 07:15 05/09/24 07:48 Albumin Human 50 ml @ 100 mls/hr Q8H IV 05/09/24 07:15 05/09/24 23:44 Review of Systems cannot obtain due to critical illness H&P Exam Vital Signs/I&O Vital Sign Date Time Temp Pulse Resp B/P (MAP) Pulse Ox O2 Delivery O2 Flow Rate FiO2 05/09/24 08:05 59/32 05/09/24 07:40 97.3 113 30 96 97.3 05/09/24 07:40 Nasal Cannula* 3 32 Intake and Output 05/08/24 05/09/24 19:00 07:00 Intake Total 1841 ml 1460 ml Output Total 0 ml 15 ml Balance 1841 ml 1445 ml Intake Oral 0 ml IV Total 1241 ml 910 ml Blood Product 600 ml 300 ml Other 250 ml Output Urine Total 0 ml 15 ml # Bowel Movements 3 Physical Exam lethargic , elderly male not intubated tachycardia course breaths Labs/Diagnostic Data Labs/Diagnostic Data Laboratory Tests Test 05/09/24 00:20 05/08/24 21:11 05/08/24 19:04 05/08/24 18:31 Range/Units Hemoglobin 7.3 #L 13.5-17.5 g/dL Hematocrit 23.6 #L 41.0-53.0 % Potassium Level 5.1 6.2 *H 3.5-5.1 mmol/L Sodium Level 146 H 136-145 mmol/L Chloride Level 119 H 98-107 mmol/L Carbon Dioxide Level 17 L 20-31 mmol/L Anion Gap 10 5-15 Blood Urea Nitrogen 54 H 9-23 mg/dL Creatinine 2.37 H 0.700-1.30 mg/dL Glomerular Filtration Rate Calc 27 >90 mL/min BUN/Creatinine Ratio 22.8 H 10.0-20.0 Serum Glucose 162 H 74-106 mg/dL Lactic Acid Level 4.1 *H 0.4-2.0 mmol/L Calcium Level 8.5 L 8.7-10.4 mg/dL Urine Color Yellow Yellow Urine Clarity Turbid H Clear Urine pH 5.0 5.0-9.0 Urine Specific [place] 1.023 1.001-1.035 Urine Protein 2+ H Negative Urine Ketones Trace Negative Urine Blood Negative Negative /uL Urine Nitrite Negative Negative Urine Bilirubin Negative Negative Urine Urobilinogen 3 H Negative mg/dL Urine Leukocyte Esterase Negative Negative /uL Urine RBC 2 0 - 3 /hpf Urine WBC 4 0 - 3 /hpf Urine Squamous Epithelial Cells Few <5 /hpf Urine Amorphous Crystals Few None Seen /hpf Urine Bacteria Few H None Seen /hpf Urine Hyaline Casts Few 0 - 2 /lpf Urine Mucus Few None Seen Urine Glucose Normal Normal mg/dL Stool for White Cells None seen Test 05/08/24 17:26 05/08/24 12:54 05/08/24 10:59 Range/Units Prothrombin Time 12.9 H 9.3-11.8 sec Prothrombin Time INR 1.24 H 0.9-1.15 Activated Partial Thromboplast Time 21.7 L 24.5-34.5 SEC Sodium Level 144 136-145 mmol/L Potassium Level 7.0 *H 3.5-5.1 mmol/L Chloride Level 118 H 98-107 mmol/L Carbon Dioxide Level 15 L 20-31 mmol/L Anion Gap 11 5-15 Blood Urea Nitrogen 62 H 9-23 mg/dL Creatinine 2.34 H 0.700-1.30 mg/dL Glomerular Filtration Rate Calc 28 >90 mL/min BUN/Creatinine Ratio 26.5 H 10.0-20.0 Serum Glucose 134 H 74-106 mg/dL Calcium Level 8.2 L 8.7-10.4 mg/dL Troponin I High Sensitivity 45 30 27 </=54 ng/L B-Type Natriuretic Peptide 163.45 132.85 0-100 pg/mL Hemoglobin 5.7 #*L 7.5 L 13.5-17.5 g/dL Hematocrit 18.2 #L 23.7 L 41.0-53.0 % Lactic Acid Level 3.4 *H 2.4 *H 0.4-2.0 mmol/L White Blood Count 13.5 H 4.4-10.8 10^3/uL Red Blood Count 2.33 L 4.5-5.90 10^6/uL Mean Corpuscular Volume 101.5 H 80.0-100.0 fL Mean Corpuscular Hemoglobin 32.1 H 28.0-32.0 pg Mean Corpuscular Hemoglobin Concent 31.6 L 32.0-36.0 g/dL Red Cell Distribution Width 15.6 H 11.8-14.3 % Platelet Count 158 140-450 10^3/uL Mean Platelet Volume 9.0 6.9-10.8 fL Neutrophils (%) (Auto) 89.6 H 37.0-80.0 % Lymphocytes (%) (Auto) 4.4 L 10.0-50.0 % Monocytes (%) (Auto) 5.2 0.0-12.0 % Eosinophils (%) (Auto) 0.2 0.0-7.0 % Basophils (%) (Auto) 0.6 0.0-2.0 % Neutrophils # (Auto) 12.1 H 1.6-8.6 10 ^3/uL Lymphocytes # (Auto) 0.6 0.4-5.4 10 ^3/uL Monocytes # (Auto) 0.7 0-1.3 10 ^3/uL Eosinophils # (Auto) 0 0-0.8 10 ^3/uL Basophils # (Auto) 0.1 0-0.2 10 ^3/uL Nucleated Red Blood Cells 0.0 % Magnesium Level 2.3 1.6-2.6 mg/dL Assessment ASHLEY due to hypotension and shock low BP GIB hyperkalemia metabolic acidosis stat pressors as previously instructed to nurses overnight IV albumin sodium bicarbonate maintain MAP > 65 s/p PRBC per nurse patient is DNR critically ill Plan discussed with: Other SHARON SUAZO MD May 09, 2024 07:18
[2024-05-09] MEDS: NOREPINEPHRINE 8 MG/250ML KIT 250 ML IV SCH (07:48)
[2024-05-09] MEDS ORDERED: PANTOPRAZOLE 40 MG/10 ML VIAL INJ IV SCH (10:00)
--- NOTE | 2024-05-10 15:22 | DVHDS2 ---
Summary Date of Admission May 08, 2024 at 17:39 Date and Time of Expiration: May 09, 2024 08:14 Reason for Admission: Generalized weakness and GI bleed. Labs/Diagnostic Data: Laboratory Results Test 05/09/24 00:20 05/08/24 21:11 05/08/24 19:04 05/08/24 18:31 Hemoglobin 7.3 g/dL (13.5-17.5) Hematocrit 23.6 % (41.0-53.0) Potassium Level 5.1 mmol/L (3.5-5.1) Sodium Level 146 mmol/L (136-145) Chloride Level 119 mmol/L (98-107) Carbon Dioxide Level 17 mmol/L (20-31) Anion Gap 10 (5-15) Blood Urea Nitrogen 54 mg/dL (9-23) Creatinine 2.37 mg/dL (0.700-1.30) Glomerular Filtration Rate Calc 27 mL/min (>90) BUN/Creatinine Ratio 22.8 (10.0-20.0) Serum Glucose 162 mg/dL (74-106) Lactic Acid Level 4.1 mmol/L (0.4-2.0) Calcium Level 8.5 mg/dL (8.7-10.4) Urine Color Yellow (Yellow) Urine Clarity Turbid (Clear) Urine pH 5.0 (5.0-9.0) Urine Specific [place] 1.023 (1.001-1.035) Urine Protein 2+ (Negative) Urine Ketones Trace (Negative) Urine Blood Negative /uL (Negative) Urine Nitrite Negative (Negative) Urine Bilirubin Negative (Negative) Urine Urobilinogen 3 mg/dL (Negative) Urine Leukocyte Esterase Negative /uL (Negative) Urine RBC 2 /hpf (0 - 3) Urine WBC 4 /hpf (0 - 3) Urine Squamous Epithelial Cells Few /hpf (<5) Urine Amorphous Crystals Few /hpf (None Seen) Urine Bacteria Few /hpf (None Seen) Urine Hyaline Casts Few /lpf (0 - 2) Urine Mucus Few (None Seen) Urine Glucose Normal mg/dL (Normal) Stool for White Cells None seen Test 05/08/24 17:26 05/08/24 10:59 Prothrombin Time 12.9 sec (9.3-11.8) Prothrombin Time INR 1.24 (0.9-1.15) Activated Partial Thromboplast Time 21.7 SEC (24.5-34.5) Troponin I High Sensitivity 45 ng/L (</=54) B-Type Natriuretic Peptide 163.45 pg/mL (0-100) White Blood Count 13.5 10^3/uL (4.4-10.8) Red Blood Count 2.33 10^6/uL (4.5-5.90) Mean Corpuscular Volume 101.5 fL (80.0-100.0) Mean Corpuscular Hemoglobin 32.1 pg (28.0-32.0) Mean Corpuscular Hemoglobin Concent 31.6 g/dL (32.0-36.0) Red Cell Distribution Width 15.6 % (11.8-14.3) Platelet Count 158 10^3/uL (140-450) Mean Platelet Volume 9.0 fL (6.9-10.8) Neutrophils (%) (Auto) 89.6 % (37.0-80.0) Lymphocytes (%) (Auto) 4.4 % (10.0-50.0) Monocytes (%) (Auto) 5.2 % (0.0-12.0) Eosinophils (%) (Auto) 0.2 % (0.0-7.0) Basophils (%) (Auto) 0.6 % (0.0-2.0) Neutrophils # (Auto) 12.1 10 ^3/uL (1.6-8.6) Lymphocytes # (Auto) 0.6 10 ^3/uL (0.4-5.4) Monocytes # (Auto) 0.7 10 ^3/uL (0-1.3) Eosinophils # (Auto) 0 10 ^3/uL (0-0.8) Basophils # (Auto) 0.1 10 ^3/uL (0-0.2) Nucleated Red Blood Cells 0.0 % Magnesium Level 2.3 mg/dL (1.6-2.6) Other Laboratory Tests 05/09/24 00:20 05/08/24 21:11 05/08/24 10:59 Brief Hx & Hospital Course: 78-year-old male with a known history of hypertension who initially presented to the hospital with generalized weakness and difficulty in ambulating found to have acute blood loss anemia with a GI bleed. Eventually patient was given 2 units of packed RBC. Patient by seen by GI as well. Patient is DNR DNI status. Patient became bradycardic and hypotensive and in the senior label specialist of05/09/2024. Consults/Reason for consult Gastroenterology and Nephrology Final Diagnosis/Problems List Cardiac arrhythmias Acute blood loss anemia GI bleed Multiorgan failure Discharge Disposition: at Hospital OBED ECHOLS MD May 10, 2024 15:22
== END 2024-05-09 08:14 | DRG 377 ==
LOC: ER 10:30 → EDBD 10:30 → TELE 17:39 → OVERFLOW 18:14
PROVIDERS: ADMIT Internal Medicine; ATTEND Internal Medicine
PROC: 30233N1 Transfusion of Nonautologous Red Blood Cells into Peripheral Vein, Percutaneous Approach (ICD-10-PCS; principal; 2024-05-08)
DX: K92.2 Gastrointestinal hemorrhage, unspecified (principal); J96.01 Acute respiratory failure with hypoxia; D62 Acute posthemorrhagic anemia; E87.20 Acidosis, unspecified; I13.0 Hypertensive heart and chronic kidney disease with heart failure and stage 1 through stage 4 chronic kidney disease, or unspecified chronic kidney disease; N17.9 Acute kidney failure, unspecified; N39.0 Urinary tract infection, site not specified; M48.56XA Collapsed vertebra, not elsewhere classified, lumbar region, initial encounter for fracture; E87.5 Hyperkalemia; R57.8 Other shock; E78.5 Hyperlipidemia, unspecified; I50.9 Heart failure, unspecified; I71.23 Aneurysm of the descending thoracic aorta, without rupture; Z66 Do not resuscitate; I71.43 Infrarenal abdominal aortic aneurysm, without rupture; J44.9 Chronic obstructive pulmonary disease, unspecified; I49.9 Cardiac arrhythmia, unspecified; N18.9 Chronic kidney disease, unspecified; Z88.0 Allergy status to penicillin
CPT/HCPCS: 36415; 71045; 74176; 80048; 81001; 83605; 83735; 83880; 84132; 84484; 85014; 85018; 85025; 85048; 85610; 85730; 86850; 86900; 86901; 86920; 87040; 87045; 93005; 99291; G0378; J1815; J2470; J3490; P9047